=== PATIENT | male | born 1980 | race Caucasian/White ===

== ENCOUNTER 2024-06-20 09:52 | Emergency (ER) | payer OTHER, SELFPAY ==
--- OUTSIDE RECORDS SUMMARY | 2024-06-20 09:54 | XMS_ITS | Clinical Summary ---
Author Organization [facility] Address [address] [place] [address] Care Team Providers Care Medical Office Scheduler Name Role Phone Willy Young P.A.-C. Primary Care Provider Source Comments Patient records contain information from all sites at [facility]. For routine questions regarding patient records, call [phone] during business hours, M-F 8:00 AM - 5:00 PM Central Time. Record requests for emergency care only can be directed to [phone] at any time.[facility] Allergies Active Allergy Reactions Criticality Noted Date Comments Nutmeg Other (see comments) 07/15/2010 Prednisone Other (see comments) ,Shortness of breath (Reselect Reaction) 02/15/2023 Per patient Medications * This document contains information received from the source organization and may not represent a complete record from that organization. acetaminophen (for_TYLENOL) 500 mg tablet Take 2 tablets by mouth 3 (three) times a day as needed. 04/24/19 16 Active EPINEPHrine (EPIPEN) 0.3 mg/0.3 mL injection syringe Inject 0.3 mg intramuscularly as needed. 12/19/19 17 Active cyclobenzaprine (FLEXERIL) 10 mg tablet Take 1 tablet (10 mg total) by mouth 3 (three) times a day as needed for muscle spasms. 21 tablet 03/16/20 21 Active nebulizer accessories kit Nebulizer, disposable neb kit x 4, reuseable neb kit x 1, mask x 1, filters x 1. Frequency of use: daily; Medication: albuterol Length of need: 2 months 02/17/20 23 Active albuterol 2.5 mg /3 mL nebulizer solution Inhale 2.5 mg every 6 (six) hours as needed. 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 Abnormal Electrocardiogram 04/14/2017 Cardiac Arrest Sudden Personal History 4 Major Depressive Disorder Single Episode Unspeci fied 10/31/2011 Overview (08/27/2016): Depression Major NOS Herpes Genitalis 03/01/2009 Dependence Nicotine 08/02/2007 Resolved Problems Problem Noted Date Diagnosed Date Resolved Date Meningitis Viral 06/10/2018 04/14/2023 Major Depressive Disorder Si ngle Episode Unspecified 06/16/2007 04/14/2023 Overview (08/27/2016): Depression Major NOS Immunizations Immunization Administration Dates Next Due DTP 12/31/1979, 9,1978,1978 Influenza, Injectable, Quadrivalent 01/27/2019 Influenza, Unspecified 02/03/2017,01/17/2014,10/2012 MMR 02/24/1991,09/25/1979 OPV 12/31/1979, 9,1978,1978 SARS-COV-2 (COVID-19) - MODERNA(Discontinued) 07/20/2020,06/22/2020 Td (Adult), adsorbed 12/31/2009,02/24/1991 Td, (Adult) Unspecified 02/24/1991 Tdap 02/03/2017 influenza vaccine quad (FLUZONE/FLUARIX) (6 months and older)(PF) 02/16/2020 Family History Medical History Relation Name Comments Heart disease Grandfather maternal Heart disease Grandmother maternal Arthritis Mother P. Lauro COPD Mother P. Lauro Heart disease Mother P. Lauro Hypertension Mother P. Lauro Migraines Mother P. Lauro Mood disorder Mother P. Barberts Other Mother P. Barberts Recurrent diarr hea Eczema Son Relation Name Status Comments Grandfather maternal Grandmother maternal Mother P. Barberts Son Social History Tobacco Use Types Packs/Day Years Used Date Smoking Tobacco: Every Day Cigarettes Smokeless Tobacco: Current Chew Tobacco Cessation:Ready to Q uit: No; Counseling Given: Yes Alcohol Use Standard Drinks/Week Comments Yes 2 (1 standard drink = 0.6 oz pur e alcohol) occ. q 6 months PHQ-2 Answer Date Recorded PHQ-2 Score 0 08/07/2020 Depression Answer Date Recor ded PHQ-9 Total Score (max 27) 0 08/07 Nutrition Answer Date Recorded Nutrition: EVOO Fat Source Unknown 05/30 Nutrition: Servings of Fruits/Vegetables per Day Not on file 2020 Dental Answer Date Recorded Dental: Regular Dentist Unknown 05/30/19 21 Sex and Gender Information Value Date Recorded Sex Assigned at Not on file Legal Sex Male 9:51 PM RN TRANSPLANT Gender Identity Male 09/18/2017 9:13 AM CDT Sexual Orientation Straight 09/18/2017 9: 13 AM CDT Last Filed Vital Signs Vital Sign Reading Time Taken Comments Blood Pressure 108/72 04/14/2023 9:29 AM RN TRANSPLANT ave rage Pulse 90 04/14/2023 9:29 AM RN TRANSPLANT Temperature 36.2 C (97.1 F) 04/14/2023 9:29 AM RN TRANSPLANT Respiratory Rate 20 03/26/2021 9:42 AM RN TRANSPLANT Oxygen Saturation 98% 03/26/2021 9:42 AM RN TRANSPLANT Inhaled Oxygen Concentration - - Weight 87.3 kg (192 lb 7.4 oz) 04/14/2023 9:29 A M RN TRANSPLANT Height 177.5 cm (5' 9.88) 04/14/2023 9:29 AM CS T Body Mass Index 27.71 04/14/2023 9:29 AM RN TRANSPLANT Plan of Treatment Health Maintenance Due Date Last Done Comments CT Colonography 1978 Cologuard 1978 Colonoscopy 1978 Colorectal Cancer Screening 1978 Depression Monitoring (PHQ-9) 1978 FIT 1978 Hepatitis C Screening 1978 Hepatitis B Vaccines (1 of 3 - 19+ 3-dose series) 1997 Pneumococcal vaccine (0-49 y ears) (1 of 2 - PCV) 1997 COVID-19 Vaccine ( - 2023-2 5 season) 2023 03/14/2021, 07/20/2020, 06/22/2020 Influenza Vaccine (#1) 2024 0, 01/27/2019, 02/03/2017, Additional history exists Depression Monitoring (PHQ-9 for quality tracking) 04/07/2024 Fasting Glucose for Diabetes Screening 04/01/2026 04/01/2023, 02/21/2023, 02/16/2023, Additional history exists DTaP,Tdap,and Td Vaccines (7 - Td or Tdap) 02/03/2027 02/03/2017, 12/31/2009, 02/24/1991, Additional history exists Lipid (Cholesterol) Screening 04/14/2028, 03/01/2013, 12/12/2011 IPV Vaccines Completed 12/31/1979, 12/06, 1978, Additional history exists HIV Screening Completed 08/26/2008 Procedures Procedure Name Priority Date/Time Associated Diagnosis Comments LIPID PANEL, S Routine 04/14/2023 9:13 AM RN TRANSPLANT Screening Lipid BASIC METABOLIC PANEL, S/P Routine 03/16/2021 1:36 PM RN TRANSPLANT Injury Back Initial from Last 3 Months or Most Recently Relevant to Health Maintenance Results * (ABNORMAL) Lipid Panel (04/14/2023 9:13 AM RN TRANSPLANT) Triglycerides 234(H) mg/dL 04/14/2023 11:58 AM RN TRANSPLANT OWAT Comment: ----REFERENCE VALUE---- Normal: <150 mg/dL Borderline High: 150-199 mg/dL High: 200-499 mg/dL Very High: > or =500 mg/dL Cholesterol, Total 245(H) mg/dL 2023 11:58 AM RN TRANSPLANT [employer]AT Comment: ----REFERENCE VALUE---- Desirable: < 200 mg/dL Borderline High: 200 - 239 mg/dL High: > or = 240 mg/dL Cholesterol, LDL, Calculated 166(H) mg/dL 04/14/2023 11:58 AM RN TRANSPLANT [employer]AT Comment: ----REFERENCE VALUE---- Desirable: <100 mg/dL Above Desirable: 100-129 mg/dL Borderline High: 130-159 mg/dL High: 160-189 mg/dL Very High: >=190 mg/dL ----ADDITIONAL INFORMATION---- LDL cholesterol calculated using the Ritchie/NIH equation. Cholesterol, HDL 35(L) >=40 mg/dL 04/14/19 11:58 AM RN TRANSPLANT OWAT Cholesterol, Non-HDL, Calculated 210(H) mg/dL 04/14/2023 11:58 AM RN TRANSPLANT [employer]AT Comment: ----REFERENCE VALUE---- Desirable: <130 mg/dL Above Desirable: 130-159 mg/dL Borderline High: 160-189 mg/dL High: 190-219 mg/dL Very High: > or =220 mg/dL Fasting (8 HR or more) Yes 04/14/2023 11:06 AM RN TRANSPLANT [employer]AT Blood (Blood, Venous) 04/14/2023 9:13 AM RN TRANSPLANT 04/14/2023 11:06 AM RN TRANSPLANT us Willy Young P.A.-C. LAB BLOOD ADD-ON Final Result [facility] [address] [place] [address], [facility] [place] [address] [place] [address] * Basic Metabolic Panel (03/16/2021 1:36 PM RN TRANSPLANT) Potassium, P 4.0 3.6 - 5.2 mmol/L 03/16/2021 1:56 PM RN TRANSPLANT OWAT Sodium, P 137 135 - 145 mmol/L 03/16/2021 1:56 PM RN TRANSPLANT [employer]AT Chloride, P 104 98 - 107 mmol/L 03/16/2021 1:56 PM RN TRANSPLANT [employer]AT Bicarbonate, P 23 22 - 29 mmol/L 03/16/2021 1:56 PM RN TRANSPLANT [employer]AT Anion Gap, P 10 7 - 15 03/16/2021 1:56 PM RN TRANSPLANT OWAT BUN (Blood Urea Nitrogen), P 10 8 - 24 mg/dL 03/16/2021 1:56 PM RN TRANSPLANT OWAT Creatinine 0.96 0.74 - 1.35 mg/dL 03/16/2021 1:56 PM RN TRANSPLANT OWAT eGFR-Black/Afric an Montenegrin >90 >=60 mL/min/BSA 03/16/2021 1:56 PM RN TRANSPLANT OWAT Comment: ----ADDITIONAL INFORMATION---- Estimated GFR calculated using the 2009 CKD_EPI creatinine equation. eGFR Non-Black/Jany n Montenegrin >90 >=60 mL/min/BSA 03/16/2021 1:56 PM RN TRANSPLANT OWAT Comment: ----ADDITIONAL INFORMATION---- Estimated GFR calculated using the 2009 CKD_EPI creatinine equation. Calcium, Total, P 9.2 8.6 - 10.0 mg/dL 03/16/2021 1:56 PM RN TRANSPLANT OWAT Glucose, P 92 70 - 140 mg/dL 03/16/2021 1:56 PM RN TRANSPLANT OWAT Blood (Blood, Venous) 03/16/2021 1:36 PM RN TRANSPLANT 03/16/2021 1:39 PM RN TRANSPLANT Anne Ayala P.A.-C., P.A. LAB BLOOD ADD-ON Argelia l Result [facility] [address] [place] [address], [facility] OWAT [facility] [place] [address] [place] [address] from Last 3 Months or Most Recently Relevant to Health Maintenance Insurance [facility] Care Teams Medical Office Scheduler Relationship Specialty Start Date End Date Willy Young P.A.-C. [address] [place] [id number] PCP - General 01/17/17
--- OUTSIDE RECORDS SUMMARY | 2024-06-20 09:54 | XMS_ITS | Clinical Summary ---
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 2 Each 12/19/19 17 Active albuterol HFA (PRO-AIR; VENTOLIN; PROVENTIL) 90 mcg/actuation inhalerIndicatio ns:COPD exacerbation (HC) Inhale 1-2 Puffs by mouth every 4 hours if needed for Shortness Of Breath or Wheezing. 1 Each 01/21/20 23 Active NebulizerIndicat ions:Bronchitis Nebulizer, disposable neb kit x 4, reuseable neb kit x 1, mask x 1, filters x 1. Frequency of use: daily; Medication: albuterol Length of need: 2 months 1 Each 02/17/20 23 Active albuterol (PROVENTIL) 0.083 % neb solutionIndicati ons:Bronchitis Inhale 3 mL (2.5 mg) via a nebulizer every 6 hours if needed for Wheezing, Shortness Of Breath or Cough. 90 mL 02/17/20 23 Active AIRS Adult Aerosol Mask misc USE DIRECTED 02/17/20 23 Active durable medical equipment (DME)Indications :Pain at surgical site donut seat cushion 1 Each 04/02/20 23 Active benzonatate (TESSALON) 200 mg capsuleIndicatio ns:Cough in adult Take 1 Capsule (200 mg) by mouth 3 times daily if needed for Cough. 21 Capsule 05/01/19 24 Active albuterol HFA (PRO-AIR; VENTOLIN; PROVENTIL) 90 mcg/actuation inhalerIndicatio ns:Cough in adult,Wheezing Inhale 1-2 Puffs by mouth every 4 hours if needed for Wheezing or Shortness Of Breath. 1 Each 05/01/19 24 Active cyclobenzaprine (FLEXERIL) 10 mg tabletIndication s:Neck pain Take 1 Tablet (10 mg) by mouth every 8 hours if needed for Muscle Spasm. 3 Tablet 09/21/19 24 Active lidocaine 5 % topical patchIndications :Neck pain Apply to intact skin to cover most painful area for max 12hr per 24hr period. 10 Patch 09/23/19 24 Active diphenhydrAMINE (BENADRYL) 25 mg capsuleIndicatio ns:Wasp sting, accidental or unintentional, initial encounter Take 1 Capsule (25 mg) by mouth every 4 hours if needed (sweeling, itching). 11/14/19 24 Active acyclovir (ZOVIRAX) 200 mg capsuleIndicatio ns:Herpes Take 1 Capsule (200 mg) by mouth 5 times daily for 5 days. 25 Capsule 06/17/19 25 025 Active trimethoprim-sul famethoxazole 80-400 mg tabIndications:T esticular pain, left Take 2 Tablets by mouth two times daily for 7 days. 28 Tablet 06/17/19 25 025 Active acyclovir (ZOVIRAX) 200 mg capsuleIndicatio ns:Herpes Take 1 Capsule (200 mg) by mouth 5 times daily for 5 days. 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/2015 Sprain of left knee MPFL 06/22/2015 Personal history of sudden cardiac arrest 201309/09/2022 Herpes genitalis 03/01/2009 09/09/2022 Major depressive disorder with single episode 09/09/2022 Overview (09/09/2022): Depression Major NOS Depression Major NOS Encounters Date Type Department Care Team Description 06/16/2024 4:25 PM CDT - 06/16/2024 11:59 PM CDT Hospital Encounter [facility] [address] [place] [address] Honey Hirsch PA Abdominal pain, LLQ (left lower quadrant) 06/16/2024 3:55 PM CDT Office Visit [facility] [address] [place] [address] Honey Hirsch PA Testicle Pain (Left testicular pain radiating into right groin and right lower abdomen); Abdominal Pain/problem (Left lower abdominal pain wrapping around to left back); Back Pain 06/16/2024 Travel from Last 3 Months Immunizations Immunization Administration Dates Next Due DTP 12/31/1979,1978,1978 ,1978 Influenza Virus, Unspecified 02/03/2017 MMR 02/24/1991,09/25/1979 Oral Polio Vaccine 12/31/1979,1978, 979,1978 Td (Age >=7 Years) 02/24/1991 Tdap 02/03/2017 Family History Medical History Relation Name Comments Anesthesia Problem No Family History Clotting disorder No Family History Relation Name Status Comments Father Alive Mother Alive Social History Tobacco Use Types Packs/Day Years Used Date Smoking Tobacco: Every Day Cigarettes 1 37.2 Started: 1987 Smokeless Tobacco: Current Tobacco Cessation:Ready to Q uit: No; Counseling Given: Yes Comments:3/4 pack Alcohol Use Standard Drinks/Week Comments Yes 0 (1 standard drink = 0.6 oz pur e alcohol) occasional PHQ-2 Answer Date Recorded PHQ-2 Score 0 06/06/2018 Social Connections Answer Date Recorded Frequency of Communication with Friends and Fami ly 0 02/24/2023 Alcohol Use Answer Date Recorded How often do you have a drink containing alcohol ? 1 02/24/2023 How many drinks containing a lcohol do you have on a typical day when you are drinking? 0 02/24/2023 How often do you have five or more drinks on one occasion? 1 02/24/2023 Financial Resource Strain Answer Date R ecorded Difficulty of Paying Living Expenses 3 02/24/2023 Difficulty of Paying Living Expenses Not on file 02/24/2023 Food Insecurity Answer Date Recorded Worried About Running Out of Food in the Last Ye ar 1 02/24/2023 Transportation Needs Answer Date Record ed Lack of Transportation (Medical) 1 02/24/2023 Housing Stability Answer Date Recorded Unable to Pay for Housing in the Last Year 1 02/24/2023 Interpersonal Safety Answer Date Record ed Are you being hit, kicked, p ushed or yelled at (see row info)? 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 Not on file Not on file Not on jevon e Obstetrics History Last Filed Vital Signs Vital Sign Reading Time Taken Comments Blood Pressure 127/78 06/16/2024 4:00 PM CDT Pulse 104 06/16/2024 4:00 PM CDT Temperature 36.7 C (98.1 F) 06/16/2024 4:00 PM CDT Respiratory Rate 18 06/16/2024 4:00 PM CDT Oxygen Saturation 98% 06/16/2024 4:00 PM CDT Inhaled Oxygen Concentration - - Weight 92.5 kg (204 lb) 06/16/2024 4:00 PM CDT Height 177.8 cm (5' 10) 01/08/2024 10:16 PM CDT Body Mass Index 29.27 01/08/2024 10:16 PM CDT Plan of Treatment Health Maintenance Due Date Last Done Comments HIV for age 15-65 1993 Hepatitis C screening for age 18-79 1996 Pneumococcal series for age 6-49 (1 of 2 - PCV) 1997 Depression screening for age 12+ 01/06/2019 01/07/20 18 Colonoscopy through age 75 2023 Lipids for age 45-75 2023 COVID-19 vaccine series ( season) 2023 03/14/2021, 07/20/2020, 06/22/2020 Influenza Vaccine (#1) 2023 02/03/2017 BMI (ht and wt on same day) for age 18+ 02/25/2024 02/24/2023, 11/30/2018, 01/06/2018 Tetanus booster 02/03/2027 02/03/2017, 02/24/1991 Tdap Completed 02/03/2017 Procedures Procedure Name Priority Date/Time Associated Diagnosis Comments RED CELL MORPHOLOGY STAT 06/16/2024 4 :55 PM CDT Abdominal pain, LLQ (left lower quadrant) PLATELET ESTIMATE STAT 06/16/2024 4:5 5 PM CDT Abdominal pain, LLQ (left lower quadrant) MANUAL DIFFERENTIAL STAT 06/16/2024 4 :55 PM CDT Abdominal pain, LLQ (left lower quadrant) CBC WITH AUTO DIFFERENTIAL STAT 06/16/2024 4:55 PM CDT Abdominal pain, LLQ (left lower quadrant) BASIC METABOLIC PANEL STAT 06/16/2024 4:55 PM CDT Abdominal pain, LLQ (left lower quadrant) CBC WITH AUTO DIFFERENTIAL STAT 06/16/2024 4:55 PM CDT Abdominal pain, LLQ (left lower quadrant) CT ABDOMEN PELVIS WO STAT 06/16/2024 4:29 PM CDT Abdominal pain, LLQ (left lower quadrant) URINE CULTURE Routine 06/16/2024 4:17 PM CDT Urine frequency UA W/ SEDIMENT EXAM REFLEXED PER CRITERIA STAT 06/16/2024 4:17 PM CDT Urine frequency from Last 3 Months Results * (ABNORMAL) CBC WITH AUTO DIFFERENTIAL (06/16/2024 4:55 PM CDT) Pathologist [facility] WHITE BLOOD COUNT 12.1(H) 4.5 - 11.0 thou/cu mm 06/16/2024 6:30 PM T [facility] RED BLOOD COUNT 4.61 4.30 - 5.90 mil/cu mm 06/16/2024 6:30 PM T [facility] HEMOGLOBIN 14.2 13.5 - 17.5 g/dL 06/16/2024 6:30 PM [facility] HEMATOCRIT 42.7 37.0 - 53.0 % 06/16/2024 6:30 PM [facility] MCV 93 80 - 100 fL 06/16/2024 6:30 PM [facility] MCH 30.8 26.0 - 34.0 pg 06/16/2024 6:30 PM [facility] MCHC 33.3 32.0 - 36.0 g/dL 06/16/2024 6:30 PM [facility] RDW 15.0 11.5 - 15.5 % 06/16/2024 6:30 PM [facility] PLATELET COUNT 358 140 - 440 thou/cu mm 06/16/2024 6:30 PM [facility] MPV 9.6 6.5 - 11.0 fL 06/16/2024 6:30 PM [facility] Blood BLOOD SPECIMEN / Unknown [facility] / Unknown 06/16/2024 4:55 PM CDT 06/16/2024 4:55 PM CDT Honey HYMAN HEMATOLOGY Final Result Performing Organization Address [facility] de Phone Number [facility] [address] [place] [address] * RED CELL MORPHOLOGY (06/16/2024 4:55 PM CDT) [facility] RBC COMMENT RBC morphology appears normal RBC morphology appears normal, RBC morphology within normal limits for newborns. 06/16/2024 6:30 PM CDT [facility] Blood BLOOD SPECIMEN / Unknown [facility] / Unknown 06/16/2024 4:55 PM CDT 06/16/2024 4:55 PM CDT Honey HYMAN HEMATOLOGY Final Result Performing Organization Address [facility] de Phone Number [facility] [address] [place] [address] * PLATELET ESTIMATE (06/16/2024 4:55 PM CDT) [facility] PLATELET ESTIMATE Adequate Adequate, No estimate 06/16/2024 6:30 PM CDT [facility] Blood BLOOD SPECIMEN / Unknown [facility] / Unknown 06/16/2024 4:55 PM CDT 06/16/2024 4:55 PM CDT Honey HYMAN HEMATOLOGY Final Result Performing Organization Address [facility] Co de Phone Number [facility] [address] [place] [address] * (ABNORMAL) MANUAL DIFFERENTIAL (06/16/2024 4:55 PM CDT) [facility] % NEUTROPHILS 51.0 % 06/16/2024 6:30 PM CDT [facility] % LYMPHOCYTES 37.0 % 06/16/2024 6:30 PM CDT [facility] % MONOCYTES 8.0 % 06/16/2024 6:30 PM CDT [facility] % EOSINOPHILS 2.0 % 06/16/2024 6:30 PM CDT [facility] % BASOPHILS 1.0 % 06/16/2024 6:30 PM CDT [facility] % MYELOCYTES 1.0(H) <0.1 % 06/16/2024 6:30 PM CDT [facility] NEUTROPHILS ABSOLUTE 6.2 1.7 - 7.0 thou/cu mm 06/16/2024 6:30 PM CDT [facility] LYMPHOCYTES ABSOLUTE 4.5(H) 0.9 - 2.9 thou/cu mm 06/16/2024 6:30 PM CDT [facility] MONOCYTES ABSOLUTE 1.0(H) <0.9 thou/cu mm 06/16/2024 6:30 PM T [facility] EOSINOPHILS ABSOLUTE 0.2 <0.5 thou/cu mm 06/16/2024 6:30 PM CDT [facility] BASOPHILS ABSOLUTE 0.1 <0.3 thou/cu mm 06/16/2024 6:30 PM T [facility] ABSOLUTE MYELOCYTES 0.1(H) <=0.0 thou/cu mm 06/16/2024 6:30 PM T [facility] Blood BLOOD SPECIMEN / Unknown [facility] / Unknown 06/16/2024 4:55 PM CDT 06/16/2024 4:55 PM CDT Honey HYMAN HEMATOLOGY Final Result [facility] [address] [place] [address] * (ABNORMAL) BASIC METABOLIC PANEL (06/16/2024 4:55 PM CDT) SODIUM 141 136 - 145 mmol/L 06/16/2024 6:26 PM CDT [facility] POTASSIUM 4.3 3.5 - 5.1 mmol/L 06/16/2024 6:26 PM T [facility] CHLORIDE 106 98 - 107 mmol/L 06/16/2024 6:26 PM [facility] CO2,TOTAL 24 22 - 29 mmol/L 06/16/2024 6:26 PM [facility] ANION GAP 11 5 - 18 06/16/2024 6:26 PM [facility] GLUCOSE 107(H) 70 - 99 mg/dL 06/16/2024 6:26 PM [facility] CALCIUM 9.4 8.8 - 10.4 mg/dL 06/16/2024 6:26 PM [facility] Comment: Reference ranges for this test were updated on 02/10/2024 to reflect our healthy population more accurately. Reference range changes are not retroactively applied to results, but previous results using the same methodology can be interpreted in the context of the new reference range. BUN 16 6 - 20 mg/dL 06/16/2024 6:26 PM [facility] CREATININE 1.04 0.70 - 1.20 mg/dL 06/16/2024 6:26 PM [facility] BUN/CREAT RATIO 15 10 - 20 6:26 PM [facility] eGFR 90(L) >90 mL/min/1. 73m2 06/16/2024 6:26 PM [facility] Comment:As of 2021, eG FR is calculated by the CKD-EPI creatinine equation without race adjustment. eGFR can be influenced by muscle mass, exercise, and diet. The reported eGFR is an estimation only and is only applicable if the renal function is stable. Blood BLOOD SPECIMEN / Unknown [facility] / Unknown 06/16/2024 4:55 PM CDT 06/16/2024 4:55 PM CDT us Honey HYMAN CHEMISTRY Final Result [facility] [address] [place] [address] * CT ABDOMEN PELVIS WO (06/16/2024 4:29 PM CDT) Anatomical Region Laterality Modality Abdomen, Pelvis, AORTA, LIVER, SPLEEN Computed Tomography 06/16/2024 4:44 PM CDT Impressions 06/16/2024 4:44 PM CDT 1. No nephrolithiasis or hydronephrosis. 2. No dilated bowel or localized inflammation. 3. Right adrenal adenoma measuring 2.0 centimeters. Please note that all CT scans at this facility use dose modulation, iterative reconstruction, and/or weight-based dosing when appropriate to reduce radiation dose to as low as reasonably achievable. Dictated by Saeid Navarro MD @ 06/16/2024 4:44:30 PM (Electronically Signed) Narrative 06/16/2024 4:44 PM CDT For Patients: As a result of the Cures Act, medical imaging exams and procedure reports are released immediately into your electronic medical record. You may view this report before your referring provider. If you have questions, please contact your health care provider. INDICATION: Left lower quadrant abdominal pain TECHNIQUE: Axial images were obtained from the diaphragm to the pubic symphysis. Reformats were obtained in the coronal and sagittal plane. IV Contrast: None Oral Contrast: None COMPARISON: CT pelvis 04/01/2023 FINDINGS: Lower chest: Unremarkable. Liver: Unremarkable. Normal in size and attenuation. No masses. Gallbladder and bile ducts: Unremarkable. No stones or inflammation. No biliary dilatation. Spleen: Unremarkable. Normal in size without mass. Pancreas: Unremarkable. No mass or inflammation. Adrenal glands: Low-density lesion measuring 2.0 centimeters at the inferior margin of the adrenal gland extending near the right kidney. This is probably right adrenal in origin and with its Hounsfield unit measurements likely represents an exophytic adrenal adenoma. Kidneys: Exophytic left renal cyst measuring 11 millimeters at the upper and lower pole. No ureteral stone or hydronephrosis. Vasculature: Unremarkable. GI tract: The stomach is unremarkable. No dilated loops of large or small intestine. Appendix unremarkable. Ligament of Treitz to the left of midline. Ileocecal valve unremarkable. Pelvis: Unremarkable. Bones: Unremarkable for age. Procedure Note Saeid Navarro MD - 06/16/2024 For Patients: As a result of the Cures Act, medical imagingexams and procedure reports are released immediately into your electronicmedical record. You may view this report before your referring provider.If you have questions, please contact your health care provider. INDICATION: Left lower quadrant abdominal pain TECHNIQUE: Axial images were obtained from the diaphragm to the pubic symphysis. Reformats were obtained in the coronal and sagittal plane. IV Contrast: None Oral Contrast: None COMPARISON: CT pelvis 04/01/2023 FINDINGS: Lower chest: Unremarkable. Liver: Unremarkable. Normal in size and attenuation. No masses. Gallbladder and bile ducts: Unremarkable. No stones or inflammation. Nobiliary dilatation. Spleen: Unremarkable. Normal in size without mass. Pancreas: Unremarkable. No mass or inflammation. Adrenal glands: Low-density lesion measuring 2.0 centimeters at theinferior margin of the adrenal gland extending near the right kidney. Thisis probably right adrenal in origin and with its Hounsfield unitmeasurements likely represents an exophytic adrenal adenoma. Kidneys: Exophytic left renal cyst measuring 11 millimeters at the upperand lower pole. No ureteral stone or hydronephrosis. Vasculature: Unremarkable. GI tract: The stomach is unremarkable. No dilated loops of large or smallintestine. Appendix unremarkable. Ligament of Treitz to the left ofmidline. Ileocecal valve unremarkable. Pelvis: Unremarkable. Bones: Unremarkable for age. IMPRESSION: 1. No nephrolithiasis or hydronephrosis. 2. No dilated bowel or localized inflammation. 3. Right adrenal adenoma measuring 2.0 centimeters. Please note that all CT scans at this facility use dose modulation,iterative reconstruction, and/or weight-based dosing when appropriate toreduce radiation dose to as low as reasonably achievable. Dictated by Saeid Navarro MD @ 06/16/2024 4:44:30 PM (Electronically Signed) Honey HYMAN CT Final Result * URINE CULTURE [19935.2] - routine (06/16/2024 4:17 PM CDT) CULTURE No growth (<1,000 CFU/mL) 06/18/2024 10:30 AM CDT [facility] Urine URINE SPECIMEN / Unknown Non-Blood / Unknown 06/16/2024 4:17 PM CDT 06/16/2024 4:30 PM CDT us Honey HYMAN MICROBIOLOGY Final Result [facility] [address] [place] [address], [place] * UA W/ SEDIMENT EXAM REFLEXED PER CRITERIA [43920.2] - STAT (06/16/2024 4:17 PM CDT) COLOR Yellow Yellow Color 06/16/2024 6:16 PM CDT [facility] CLARITY Clear Clear Clarity 06/16/2024 6:16 PM CDT [facility] SPECIFIC GRAVITY,URINE 1.025 1.010, 1.015, 1.020, 1.025 06/16/2024 6:16 PM T [facility] PH,URINE 6.0 6.0, 7.0, 8.0, 5.5, 6.5, 7.5, 8.5 06/16/2024 6:16 PM [facility] UROBILINOGEN, QUALITATIVE Normal Normal EU/dl 06/16/2024 6:16 PM [facility] PROTEIN, URINE Negative Negative mg/dL 06/16/2024 6:16 PM [facility] GLUCOSE, URINE Negative Negative mg/dL 06/16/2024 6:16 PM [facility] KETONES,URINE Negative Negative mg/dL 06/16/2024 6:16 PM [facility] BILIRUBIN,URI NE Negative Negative 06/16/2024 6:16 PM [facility] OCCULT BLOOD,URINE Negative Negative 06/16/2024 6:16 PM [facility] NITRITE Negative Negative 06/16/2024 6:16 PM [facility] LEUKOCYTE ESTERASE Negative Negative 06/16/2024 6:16 PM [facility] Urine URINE SPECIMEN / Unknown Non-Blood / Unknown 06/16/2024 4:17 PM CDT 06/16/2024 4:30 PM CDT us Honey HYMAN URINE Final Result [facility] [address] [place] [address] from Last 3 Months Advance Directives * Full Code (Latest Code Status on File) Date Activated Date Inactivated Comments 03/20/2023 8:52 AM 03/20/2023 4:14 PM Question Answer Comments Code Status Discussion: Unable to Assess Preferences, Provider to review later * Full Code Date Activated Date Inactivated Comments 09/19/2021 7:22 AM 09/19/2021 12:46 PM Question Answer Comments Code Status Discussion: Reviewed Preferences * Full Code Date Activated Date Inactivated Comments 06/10/2018 4:48 AM 06/12/2018 10:52 AM Care Teams 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
[2024-06-20 09:55] VITALS: BP 116/81; PULSE 96; RESP 18; TEMP 37; O2SAT 98; BMI 29.4
--- NOTE | 2024-06-20 10:12 | ED.GENADULT ---
HPI - General Adult General Chief complaint: Back Injury/Pain Stated complaint: back pain Time Seen by Provider: 06/20/24 09:55 History of Present Illness HPI narrative: Patient is a 44-year-old gentleman who comes in today with acute on chronic back pain. The pain is in the low lumbar spine with radiation into the buttocks. He has had no recent trauma. No bowel or bladder symptoms no fevers no chills. Patient has had issues over the years but symptoms have worsened the last day or so. No other concerns are noted. Patient states that he is allergic to prednisone. Related Data Home Medications ?Medication ?Instructions ?Recorded ?Confirmed acyclovir 200 mg capsule 200 mg PO 5XD 06/20/24 06/20/24 Previous Rx's ?Medication ?Instructions ?Recorded hydrocodone 5 mg-acetaminophen 325 1 tab PO Q4-6H PRN pain #10 tabs 06/20/24 mg tablet Allergies Allergy/AdvReac Type Severity Reaction Status Date / Time prednisone Allergy Severe Verified 06/20/24 10:00 Review of Systems Status of ROS: Reports: 10 or more systems reviewed and unremarkable except as noted in History and below Exam Narrative: Exam Narrative: EXAM GENERAL: Patient appears comfortable and well. EYES: No scleral icterus. LYMPH: No supraclavicular or cervical lymphadenopathy. SKIN: Visible skin seen during exam normal or with benign process only. EXT: No dependent lower extremity pedal edema. HEART: Regular rate and rhythm with no murmurs, rubs, or gallops. LUNGS: Clear to auscultation bilaterally with no crackles or wheezes. ABD: Soft, non tender, non distended. PSYCH: Good eye contact, speech is not pressured. Musculoskeletal exam is unremarkable normal range of motion. Const: Vital Signs, click to edit/add: Vital Signs - 24 hr 06/20/24 09:55 Temperature 98.6 F Pulse Rate [Right Pulse Oximeter] 96 Respiratory Rate 18 Blood Pressure [Ri ght Upper Arm] 116/81 Pulse Oximetry 98 Oxygen Delivery Me thod Room Air Course Course ED Course: Patient seen and examined. 30 mg of Toradol given IM. Vital Signs Vital signs: Initial Vital Signs Temperature 98.6 F 06/20/24 09:55 Temperature Source Temporal Artery Scan 06/20/24 09:55 Pulse Rate 96 06/20/24 09:55 Pulse Rhythm Regular 06/20/24 09:55 Pulse Strength 3+ Normal 06/20/24 09:55 Respiratory Rate 18 06/20/24 09:55 Blood Pressure 116/81 06/20/24 09:55 Blood Pressure Mean 92 06/20/24 09:55 Blood Pressure Position Sitting 06/20/24 09:55 Pulse Oximetry 98 06/20/24 09:55 Oxygen Delivery Method Room Air 06/20/24 09:55 Vital Signs Temperature 98.6 F 06/20/24 09:55 Pulse Rate 96 06/20/24 09:55 Respiratory Rate 18 06/20/24 09:55 Blood Pressure 116/81 06/20/24 09:55 Pulse Oximetry 98 06/20/24 09:55 Oxygen Delivery Method Room Air 06/20/24 09:55 Temperature 98.6 F 06/20/24 09:55 Pulse Rate 96 06/20/24 09:55 Respiratory Rate 18 06/20/24 09:55 Blood Pressure 116/81 06/20/24 09:55 Pulse Oximetry 98 06/20/24 09:55 Oxygen Delivery Method Room Air 06/20/24 09:55 Medical Decision Making MDM Narrative Medical decision making narrative: Patient is a 44-year-old gentleman who presents with acute on chronic low back pain. I did give him 30 mg of Toradol. We had a nice discussion. I do think a limited amount of Vicodin is reasonable and I did send to the pharmacy for him. He declines prednisone as he is allergic. I did recommend range of motion activities follow-up with his primary physician for further recommendations. Discharge Plan Discharge Clinical Impression: Strain of lumbar region Patient Disposition: Home, Self-Care Condition: Stable Instructions: Back Pain (ED) Additional Instructions: Tylenol Motrin Ice Vicodin for breakthrough pain. Prednisone not sent in as you have listed as an allergy. Activity Level: No Restrictions Discharge Diet: Regular Prescriptions: New hydrocodone-acetaminophen 5-325 mg tablet 1 tab PO Q4-6H PRN (Reason: pain) Qty: 10 0RF No Action acyclovir 200 mg capsule 200 mg PO 5XD Follow Up/Referrals: Wang Carballo, LAT, ATC, CSCS [Primary Care Provider] - Stand Alone Forms: MyHealth Info Instructions
--- OUTSIDE RECORDS SUMMARY | 2024-06-20 10:25 | XMS_ITS | Clinical Summary ---
Author Organization [facility] Address [address] [place] [address] Care Team Providers Care Admissions Supervisor Name Role Phone Willy Young P.A.-C. Primary Care Provider Source Comments Patient records contain information from all sites at [facility]. For routine questions regarding patient records, call [phone] during business hours, M-F 8:00 AM - 5:00 PM Central Time. Record requests for emergency care only can be directed to [phone] at any time.[facility] Allergies Active Allergy Reactions Criticality Noted Date [...] on file Legal Sex Male 9:51 PM [employer] Gender Identity Male 09/18/2017 9:13 AM CDT Sexual Orientation Straight 09/18/2017 9: 13 AM CDT Last Filed Vital Signs Vital Sign Reading Time Taken Comments Blood Pressure 108/72 04/14/2023 9:[address] [address] rage Pulse 90 04/14/2023 9:29 AM [employer] Temperature 36.2 C (97.1 F) 04/14/2023 9:29 AM [employer] Respiratory Rate 20 03/26/2021 9:42 AM [employer] Oxygen Saturation 98% 03/26/2021 9:42 AM [employer] Inhaled Oxygen Concentration - - Weight 87.3 kg (192 lb 7.4 oz) 04/14/2023 9:29 A M [employer] Height 177.5 cm (5' 9.88) 04/14/2023 9:29 AM CS T Body Mass Index 27.71 04/14/2023 9:29 AM [employer] Plan of Treatment Health Maintenance Due Date [...] LIPID PANEL, S Routine 04/14/2023 9:13 AM [employer] Screening Lipid BASIC METABOLIC PANEL, S/P Routine 03/16/2021 1:36 PM [employer] Injury Back Initial from Last 3 Months or Most Recently Relevant to Health Maintenance Results * (ABNORMAL) Lipid Panel (04/14/2023 9:13 AM [employer]) Triglycerides 234(H) mg/dL 04/14/2023 11:58 AM [employer] Comment: ----REFERENCE VALUE---- Normal: <150 mg/dL Borderline High: 150-199 mg/dL High: 200-499 mg/dL Very High: > or =500 mg/dL Cholesterol, Total 245(H) mg/dL 2023 11:58 AM [employer] Comment: ----REFERENCE VALUE---- Desirable: < 200 mg/dL Borderline High: 200 - 239 mg/dL High: > or = 240 mg/dL Cholesterol, LDL, Calculated 166(H) mg/dL 04/14/2023 11:58 AM [employer] Comment: ----REFERENCE VALUE---- Desirable: <100 mg/dL Above Desirable: 100-129 mg/dL Borderline High: 130-159 mg/dL High: 160-189 mg/dL Very High: >=190 mg/dL ----ADDITIONAL INFORMATION---- LDL cholesterol calculated using the Ritchie/NIH equation. Cholesterol, HDL 35(L) >=40 mg/dL 04/14/19 11:58 AM [employer] Cholesterol, Non-HDL, Calculated 210(H) mg/dL 04/14/2023 11:58 AM [employer] Comment: ----REFERENCE VALUE---- Desirable: <130 mg/dL Above Desirable: 130-159 mg/dL Borderline High: 160-189 mg/dL High: 190-219 mg/dL Very High: > or =220 mg/dL Fasting (8 HR or more) Yes 04/14/2023 11:06 AM [employer] Blood (Blood, Venous) 04/14/2023 9:13 AM [employer] 04/14/2023 11:06 AM [employer] us Willy Young P.A.-C. LAB BLOOD ADD-ON Final Result [facility] [address] [place] [address], [facility] [place] [address] [place] [address] * Basic Metabolic Panel (03/16/2021 1:36 PM [employer]) Potassium, P 4.0 3.6 - 5.2 mmol/L 03/16/2021 1:56 PM [employer] Sodium, P 137 135 - 145 mmol/L 03/16/2021 1:56 PM [employer] Chloride, P 104 98 - 107 mmol/L 03/16/2021 1:56 PM [employer] Bicarbonate, P 23 22 - 29 mmol/L 03/16/2021 1:56 PM [employer] Anion Gap, P 10 7 - 15 03/16/2021 1:56 PM [employer] BUN (Blood Urea Nitrogen), P 10 8 - 24 mg/dL 03/16/2021 1:56 PM [employer] Creatinine 0.96 0.74 - 1.35 mg/dL 03/16/2021 1:56 PM [employer] eGFR-Black/Afric an Iraqi >90 >=60 mL/min/BSA 03/16/2021 1:56 PM [employer] Comment: ----ADDITIONAL INFORMATION---- Estimated GFR calculated using the 2009 CKD_EPI creatinine equation. eGFR Non-Black/Jany n Iraqi >90 >=60 mL/min/BSA 03/16/2021 1:56 PM [employer] Comment: ----ADDITIONAL INFORMATION---- Estimated GFR calculated using the 2009 CKD_EPI creatinine equation. Calcium, Total, P 9.2 8.6 - 10.0 mg/dL 03/16/2021 1:56 PM [employer] Glucose, P 92 70 - 140 mg/dL 03/16/2021 1:56 PM [employer] Blood (Blood, Venous) 03/16/2021 1:36 PM [employer] 03/16/2021 1:39 PM [employer] Anne Ayala P.A.-C., P.A. LAB BLOOD ADD-ON Argelia l Result [facility] [address] [place] [address], [facility] OWAT [facility] [place] [address] [place] [address] from Last 3 Months or Most Recently Relevant to Health Maintenance Insurance [facility] Care Teams Admissions Supervisor Relationship Specialty Start Date End Date Willy Young P.A.-C. [address] [facility] [place] [address] PCP - General 01/17/17
--- OUTSIDE RECORDS SUMMARY | 2024-06-20 10:25 | XMS_ITS | Clinical Summary ---
Author Organization [employer] [facility] Address [address] [place] [address] Care Team Providers Care Portable Irrigation Operator Name Role Phone [facility], [employer] Primary Care Pro vider Allergies Active Allergy [...] - 06/16/2024 11:59 PM CDT Hospital Encounter [facility] [address] [place] [address] Honey Hirsch PA Abdominal pain, LLQ (left lower quadrant) 06/16/2024 3:55 PM CDT Office Visit [facility] [address] [place] [address] Honey Hirsch PA Testicle Pain (Left testicular [...] on file 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 Gender Identity Not on file Sexual Orientation Not on file 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 Not on file [...] AUTO DIFFERENTIAL (06/16/2024 4:55 PM CDT) Pathologist [facility] WHITE BLOOD COUNT 12.1(H) 4.5 - 11.0 thou/cu mm 06/16/2024 6:30 PM T [facility] RED BLOOD COUNT 4.61 4.30 - 5.90 mil/cu mm 06/16/2024 6:30 PM T [facility] HEMOGLOBIN 14.2 13.5 - 17.5 g/dL 06/16/2024 6:30 PM [facility] HEMATOCRIT 42.7 37.0 - 53.0 % 06/16/2024 6:30 PM [facility] MCV 93 80 - 100 fL 06/16/2024 6:30 PM [facility] MCH 30.8 26.0 - 34.0 pg 06/16/2024 6:30 PM [facility] MCHC 33.3 32.0 - 36.0 g/dL 06/16/2024 6:30 PM [facility] RDW 15.0 11.5 - 15.5 % 06/16/2024 6:30 PM [facility] PLATELET COUNT 358 140 - 440 thou/cu mm 06/16/2024 6:30 PM [facility] MPV 9.6 6.5 - 11.0 fL 06/16/2024 6:30 PM [facility] Blood BLOOD SPECIMEN / Unknown [facility] Collect / Unknown 06/16/2024 4:55 PM CDT 06/16/2024 4:55 PM CDT Honey HYMAN HEMATOLOGY Final Result Performing Organization Address [facility] [address] [facility] de Phone Number [facility] [address] [place] [address] * RED CELL MORPHOLOGY (06/16/2024 4:55 PM CDT) [facility] RBC COMMENT RBC morphology appears normal RBC morphology appears normal, RBC morphology within normal limits for newborns. 06/16/2024 6:30 PM CDT [facility] Blood BLOOD SPECIMEN / Unknown [facility] Collect / Unknown 06/16/2024 4:55 PM CDT 06/16/2024 4:55 PM CDT Honey HYMAN HEMATOLOGY Final Result Performing Organization Address [facility] [address]/[facility] de Phone Number [facility] [address] [place] [address] * PLATELET ESTIMATE (06/16/2024 4:55 PM CDT) [facility] PLATELET ESTIMATE Adequate Adequate, No estimate 06/16/2024 6:30 PM CDT [facility] Blood BLOOD SPECIMEN / Unknown [facility] Collect / Unknown 06/16/2024 4:55 PM CDT 06/16/2024 4:55 PM CDT Honey HYMAN HEMATOLOGY Final Result Performing Organization Address [facility] [address]/[facility] Co de Phone Number [facility] [address] [place] [address] * (ABNORMAL) MANUAL DIFFERENTIAL (06/16/2024 4:55 PM CDT) [facility] % NEUTROPHILS 51.0 % 06/16/2024 6:30 PM CDT [facility] % LYMPHOCYTES 37.0 % 06/16/2024 6:30 PM CDT [facility] % MONOCYTES 8.0 % 06/16/2024 6:30 PM CDT [facility] % EOSINOPHILS 2.0 % 06/16/2024 6:30 PM CDT [facility] % BASOPHILS 1.0 % 06/16/2024 6:30 PM CDT [facility] % MYELOCYTES 1.0(H) <0.1 % 06/16/2024 6:30 PM CDT [facility] NEUTROPHILS ABSOLUTE 6.2 1.7 - 7.0 thou/cu mm 06/16/2024 6:30 PM CDT [facility] LYMPHOCYTES ABSOLUTE 4.5(H) 0.9 - 2.9 thou/cu mm 06/16/2024 6:30 PM CDT [facility] MONOCYTES ABSOLUTE 1.0(H) <0.9 thou/cu mm 06/16/2024 6:30 PM T [facility] EOSINOPHILS ABSOLUTE 0.2 <0.5 thou/cu mm 06/16/2024 6:30 PM CDT [facility] BASOPHILS ABSOLUTE 0.1 <0.3 thou/cu mm 06/16/2024 6:30 PM T [facility] ABSOLUTE MYELOCYTES 0.1(H) <=0.0 thou/cu mm 06/16/2024 6:30 PM T [facility] Blood BLOOD SPECIMEN / Unknown [facility] Collect / Unknown 06/16/2024 4:55 PM CDT 06/16/2024 4:55 PM CDT Honey HYMAN HEMATOLOGY Final Result [facility] [address] [place] [address] * (ABNORMAL) BASIC METABOLIC PANEL (06/16/2024 4:55 PM CDT) SODIUM 141 136 - 145 mmol/L 06/16/2024 6:26 PM CDT [facility] POTASSIUM 4.3 3.5 - 5.1 mmol/L 06/16/2024 6:26 PM T [facility] CHLORIDE 106 98 - 107 mmol/L 06/16/2024 6:[address] [facility] CO2,TOTAL 24 22 - 29 mmol/L 06/16/2024 6:26 PM [facility] ANION GAP 11 5 - 18 06/16/2024 6:26 PM [facility] GLUCOSE 107(H) 70 - 99 mg/dL 06/16/2024 6:26 PM [facility] CALCIUM 9.4 8.8 - 10.4 mg/dL 06/16/2024 6:26 PM [facility] Comment: Reference ranges for this test were updated on 02/10/2024 to reflect our healthy population more accurately. Reference range changes are not retroactively applied to results, but previous results using the same methodology can be interpreted in the context of the new reference range. BUN 16 6 - 20 mg/dL 06/16/2024 6:26 PM [facility] CREATININE 1.04 0.70 - 1.20 mg/dL 06/16/2024 6:26 PM [facility] BUN/CREAT RATIO 15 10 - 20 6:26 PM [facility] eGFR 90(L) >90 mL/min/1. 73m2 06/16/2024 6:26 PM [facility] Comment:As of 2021, eG FR is [...] CDT us Honey HYMAN CHEMISTRY Final Result [facility] [address] [place] [address] * CT ABDOMEN PELVIS WO (06/16/2024 4:29 [...] HYMAN CT Final Result * URINE CULTURE [53933.2] - routine (06/16/2024 4:17 PM CDT) CULTURE No growth (<1,000 CFU/mL) 06/18/2024 10:30 AM CDT [facility] Urine URINE SPECIMEN / Unknown Non-Blood / Unknown 06/16/2024 4:17 PM CDT 06/16/2024 4:30 PM CDT us Honey HYMAN MICROBIOLOGY Final Result [facility] [address] [place] [address], [place] * UA W/ SEDIMENT EXAM REFLEXED PER CRITERIA [27286.2] - STAT (06/16/2024 4:17 PM CDT) COLOR Yellow Yellow Color 06/16/2024 6:16 PM CDT [facility] CLARITY Clear Clear Clarity 06/16/2024 6:16 PM CDT [facility] SPECIFIC GRAVITY,URINE 1.025 1.010, 1.015, 1.020, 1.025 06/16/2024 6:16 PM T [facility] PH,URINE 6.0 6.0, 7.0, 8.0, 5.5, 6.5, 7.5, 8.5 06/16/2024 6:16 PM [facility] UROBILINOGEN, QUALITATIVE Normal Normal EU/dl 06/16/2024 6:16 PM [facility] PROTEIN, URINE Negative Negative mg/dL 06/16/2024 6:16 PM [facility] GLUCOSE, URINE Negative Negative mg/dL 06/16/2024 6:16 PM [facility] KETONES,URINE Negative Negative mg/dL 06/16/2024 6:16 PM [facility] BILIRUBIN,URI NE Negative Negative 06/16/2024 6:16 PM [facility] OCCULT BLOOD,URINE Negative Negative 06/16/2024 6:16 PM [facility] NITRITE Negative Negative 06/16/2024 6:16 PM [facility] LEUKOCYTE ESTERASE Negative Negative 06/16/2024 6:16 PM [facility] Urine URINE SPECIMEN / Unknown Non-Blood / Unknown 06/16/2024 4:17 PM CDT 06/16/2024 4:30 PM CDT us Honey HYMAN URINE Final Result [facility] [address] [facility] [place] [address] from Last 3 Months Advance Directives * [...] 4:48 AM 06/12/2018 10:52 AM Care Teams Portable Irrigation Operator Relationship Specialty Start Date End Date Clinic, [facility] [address] [facility] BIMAL [place]CKOY [address] PCP - General 03/05/23
--- OUTSIDE RECORDS SUMMARY | 2024-06-20 10:25 | XMS_ITS | Data Portability ---
Author Organization [place] - [facility], [employer] Address [address] [place] [address] Care Team Providers Care Crew Member Name Role Phone JAYNA SWANN Primary Care Provider [phone] Assessment Encounter Date Assessment Date Assessment LastModified by Organization Details LastModified Time 05/21/2023 05/21/2023 Patient was informed of his diagnosis as detailed down below. At this time the patient was informed that in regards to his left Hallux nail I would recommend nail removal in either a temporary vs permanent fashion to alleviate pressure to this location. The patient will think on this today. In regards to his tinea pedis I did inform him to utilize ketoconazole cream (prescribed) to alleviate symptoms. [email or web address] Not available 05/21/2023 13:25:16 Plan of Treatment Reminders Order Date Submit Date Provider Last Modified By Organization Details Last Modified Time Details Appointments None recorded. Lab None recorded. Referral None recorded. Procedures None recorded. Surgeries None recorded. Imaging None recorded. Medication Orders ketoconazol e 2 % topical cream 2023 024 [facility] [address] [place] [address], [address], [address] 10:16:16 Patient TargetsNo targets recorded. Patient InstructionsNo instructions recorded. Reason for Referral None Reported. Medical Equipment None Reported. Allergies Allergen ID Allergen Name Allergen Category Reaction Reaction Severity Criticality Documentation Date Start Date Code Code System Note Provider Name and Address Organization Details Recorded Time prednison e medicatio n Not available Not available Not available 05/21/2023 8640 [facility] BIMAL Jean - [facility] 09:43:59 Medications Name Sig Start Date Stop Date Status Note LastModified by Organization Details LastModified Time cyclobenzap rine 10 mg tablet TAKE 1 TABLET BY MOUTH TWICE DAILY FOR 10 DAYS 05/21 completed Not Available Not Available Not Available ketoconazol e 2 % shampoo WASH AFFECTED AREA ON BACK DAILY UNTIL RESOLVED. LATHER AND LET SIT 3-5 MINUTES PRIOR TO RINSING. 05/21 completed Not Available Not Available Not Available albuterol sulfate 2.5 mg/3 mL (0.083 %) solution for nebulizatio n USE 1 VIAL IN NEBULIZER EVERY 6 HOURS NEEDED FOR SHORTNESS OF BREATH /WHEEZING OR COUGH 05/21 completed Not Available Not Available Not Available fluconazole 150 mg tablet TAKE 1 TABLET BY MOUTH ONCE A WEEK FOR 21 DAYS 05/21 completed Not Available Not Available Not Available benzonatate 200 mg capsule TAKE 1 CAPSULE BY MOUTH THREE TIMES DAILY NEEDED FOR COUGH 05/21 completed Not Available Not Available Not Available prednisone 20 mg tablet TAKE 2 TABLETS BY MOUTH ONCE DAILY FOR 5 DAYS 05/21 completed Not Available Not Available Not Available penicillin V potassium 500 mg tablet TAKE 1 TABLET BY MOUTH THREE TIMES DAILY BEFORE MEAL(S) FOR 10 DAYS 05/21 completed Not Available Not Available Not Available ketorolac 10 mg tablet TAKE 1 TABLET BY MOUTH THREE TIMES DAILY FOR 4 DAYS . MAXIMUM OF 40MG IN 24 HOURS 05/21 completed Not Available Not Available Not Available Airs Disposable Nebulizer misc USE DIRECTED 05/21 completed Not Available Not Available Not Available benzonatate 100 mg capsule TAKE 1 TO 2 CAPSULES BY MOUTH THREE TIMES DAILY NEEDED FOR COUGH 05/21 completed Not Available Not Available Not Available lidocaine 5 % topical patch APPLY 1 PATCH TO INTACT SKIN COVERING MOST PAINFUL AREA FOR UP TO 12 HOURS PER 24 HOUR PERIOD 05/21 completed Not Available Not Available Not Available oxycodone 5 mg capsule TAKE 1 CAPSULE BY MOUTH AT BEDTIME NEEDED 05/21 completed Not Available Not Available Not Available albuterol sulfate HFA 90 mcg/actuati on aerosol inhaler INHALE 1 TO 2 PUFFS BY MOUTH EVERY 4 HOURS NEEDED FOR WHEEZING FOR SHORTNESS OF BREATH 05/21 completed Not Available Not Available Not Available ketoconazol e 2 % topical cream APPLY TO THE AFFECTED AREA(S) BY TOPICAL ROUTE ONCE DAILY 2023 active Not Available Not Available Not Avai lable doxycycline hyclate 100 mg tablet TAKE 1 TABLET BY MOUTH TWICE DAILY FOR 7 DAYS 05/21 completed Not Available Not Available Not Available amoxicillin 875 mg-mary m clavulanate 125 mg tablet TAKE 1 TABLET BY MOUTH TWICE DAILY WITH MEALS FOR 7 DAYS 05/21 completed Not Available Not Available Not Available oxycodone 5 mg tablet TAKE 1 TABLET BY MOUTH EVERY 6 HOURS NEEDED FOR BREAKTHRO UGH PAIN 05/21 completed Not Available Not Available Not Available Comp-Air Nebulizer Compressor USE DIRECTED 05/21 completed Not Available Not Available Not Available AIRS Adult Aerosol Mask USE DIRECTED 05/21 completed Not Available Not Available Not Available Vitals Date Recorded Body height Body mass index (BMI) Body weight Provider Name and Address Organization Details Last Updated DateTime 05/21/2023 177.8 cm 28.7 kg/m2 96114.47 g Kristine Villarreal [place] - [facility] 05/21/2023 09:46:11 Social History None recorded. Functional Status None recorded. Mental Status None recorded. Family History Nothing Reported. Medical History No medical history recorded. Past Encounters Encounter ID Performer Location Encounter Start Date Encounter Closed Date Diagnosis/Indication Diagnosis SNOMED-CT Code Diagnosis ICD10 Code Diagnosis Note [id number] Inocente Fang DPM [facility] [address] [place] [address] [address] [place] [address] 05/21/2023 09:30:31 05/23/2023 15:04:33 Onychomycosis 368187028 B35.1 Tinea pedis 1836768 B35. 3 Health Concerns Section Related Observation LastModified by Organization Detai ls LastModified Time None Recorded Concern Status LastModified by Organization Details LastModified Time None Recorded Advance Directives Directive None Recorded Payers Encounter Date Sequence Insurance Name Policy Number Policy Sapp Covered Member ID Sapp Member ID Guarantor Name 05/21/2023 1 *SELF PAY* Fatmata Kahn Notes Date Note Type Note Provider Name and Address Organization Details Recorded Time 05/21/2023 text/html Patient is a 42 year old male new patient who presents to clinic today for evaluation of thickened and discolored big toe nail in addition to concerns of athlete's foot noted to the plantar left foot. The patient mentions that his left big toenail causes significant pain especially with pressure of the bed sheets at night. Inocente Fang, TEJ [address] [place], [address], [facility] - [facility] 05/21/2023 13:25:20
== END 2024-06-20 10:33 | disposition home or self-care (01) ==
LOC: ED 10:22
PROVIDERS: Emergency Provider Internal Medicine
DX: S39.012A Strain of muscle, fascia and tendon of lower back, initial encounter (principal)
CPT/HCPCS: 96372; 99283